=== PATIENT | male | born 1960 | race Caucasian/White ===

== ENCOUNTER 2025-07-11 07:38 | Outpatient (AMB) | payer BC, SELFPAY ==
--- OUTSIDE RECORDS SUMMARY | 2025-07-11 07:45 | XMS_ITS | Clinical Summary ---
Author Organization [facility] Address [address] [place] [phone] Phone Care Team Providers Care Energy Derivatives Trader Name Role Phone Jermain Santos DO Primary Care Provider [phone] Allergies No known active allergies Medications hydroCHLOROthiazi de (HYDRODIURIL) 25 MG tablet Take 25 mg by mouth daily. 10/19/2020 Active rosuvastatin (CRESTOR) 10 MG tablet Take 10 mg by mouth daily. 10/11/2020 Active valsartan (DIOVAN) 80 MG tablet Take 80 mg by mouth daily. 10/19/2020 Active omeprazole (PRILOSEC) 20 mg TbEC Take 20 mg by mouth daily before breakfast. Active cholecalciferol (VITAMIN D3) 2,000 unit tablet Take 1,000 Units by mouth daily. Active therapeutic multivitamin tablet Take 1 tablet by mouth daily. Active omega-3 fatty acids-fish oil 340-1,000 mg Cap Take by mouth daily. Active Immunizations Immunization Administration Dates Next Due COVID-19 (Pre-08/03) Pfizer Vaccine, mRNA, PF ,01/09/2021 Social History Tobacco Use Types Packs/Day Years Used Date Smoking Tobacco: Never Smokeless Tobacco: Never Education Answer Date Recorded Are you interested in more education? Not on clementine e 02/06/2023 Are you concerned about learning? Not on file 02/06/2023 No 02/06/2023 No 02/06/2023 Digital Access Answer Date Recorded No 03/07/2023 No 03/07/2023 No 03/07/2023 Reliable internet access at home? Not on file 03/07/2023 Device with a working camera? Not on file Sex and Gender Information Value Date Recorded Sex Assigned at Male 10/17/2020 2:41 PM EST Legal Sex Male 2:26 PM EST Gender Identity Male 10/17/2020 2:41 PM EST Sexual Orientation Straight 10/17/2020 2: 41 PM EST Plan of Treatment Health Maintenance Due Date Last Done Comments Adult Td,Tdap Booster 1960 CREATININE LEVEL 1960 LIPID PANEL 1960 POTASSIUM LEVEL 1960 DEPRESSION SCREENING 1972 HEPATITIS C SCREENING 02/07/1978 HIV ONE-TIME SCREENING (18-6 5 YEARS) 02/07/1978 COLOGUARD 02/07/2005 COLONOSCOPY 02/07/2005 COLORECTAL CANCER SCREENING 02/07/2005 FIT TEST 02/07/2005 FOBT 02/07/2005 SIGMOIDOSCOPY 02/07/2005 VIRTUAL COLONOSCOPY 02/07/2005 PNEUMOCOCCAL VACCINES (50+ years) (1 of 1 - PCV) 02/07/2010 ZOSTER VACCINES (1 of 2) 02/07/2010 INFLUENZA VACCINE (#1) 2025 07/11/2017 COVID-19 VACCINE (3 - 2024-2 6 season) 2025 01/30/2021, 01/09/2021 RSV VACCINE (1 - 1-dose 75+ series) 02/07/2035 SMOKING STATUS SCREENING (On ce After 26 Yrs) Completed 10/25/2020 HEPATITIS A VACCINES Aged Out No long er eligible based on patient's age to complete this topic HIB VACCINES Aged Out No longer eligi ble based on patient's age to complete this topic MENINGOCOCCAL VACCINES (ACWY) Aged Out No longer eligible based on patient's age to complete this topic MENINGOCOCCAL VACCINES (B) Aged Out N o longer eligible based on patient's age to complete this topic Medical Devices Not on file Insurance [facility] PPO EPO PPO EPO Care Teams Energy Derivatives Trader Relationship Specialty Start Date End Date Jermain Santos DO [address] [place] [id number] PCP - General Internal Medicine 10/17/20 Additional Source Comments The information contained in this document represents components of the legal health record. It is not the complete legal health record.[facility]
--- OUTSIDE RECORDS SUMMARY | 2025-07-11 07:45 | XMS_ITS ---
[facility] Name [facility] Unknown History of Medication Use Medication Directions Dispensed Refills Start Date End Date Stat us No known medications No known medications active Problems Problem Status Onset Date Problem Type Date of Resolution Source Need for vaccination active EncounterDiagnosisAct [facility] MCCT Immunizations Vaccine Date Source Lot Number Status Fluzone Trivalent High Dose (65+ Years) 06/16/2025 [facility] CCT [id number] completed Fluzone Trivalent Prefilled Syringe (18+ months) 07/12[facility]2020 [id number] Boostrix (Tdap) Prefilled Syringe 03/09/2020 [facility] completed Fluarix Quadrivalent Prefilled Syringe [id number] Fluarix Quadrivalent Prefilled Syringe 07/12/2016 [facility] [id number] completed Afluria TIV Multi-dose Vial (9+ years) 08/04/[address] [facility] [id number] completed Encounters Encounter Type Encounter Reason Primary Diagnosis Location Date Ambulatory Flu Vaccine Encounter for immunization [facility] 06/16/2025 Care Team Organization Name Specialty Phone Email Start Date End Da te [facility] 06/17/2025
--- OUTSIDE RECORDS SUMMARY | 2025-07-11 07:45 | XMS_ITS | Clinical Summary ---
Author Organization [facility] Address [address] [place] [phone] Phone Care Team Providers Care Certified Teacher Assistant Name Role Phone DanielleJermain beckwith Primary Care Provider [phone] Allergies No known active allergies Medications cholecalciferol (VITAMIN D-3 SUPER STRENGTH) 50 MCG (2000 UT) tablet Take 1,000 Units by mouth in the morning. Active valsartan (DIOVAN) 80 MG tablet Take 80 mg by mouth in the morning. 1 Active rosuvastatin (CRESTOR) 10 MG tablet Take 10 mg by mouth in the morning. 0 Active Canagliflozin (Invokana) 100 MG tablet Take 100 mg by mouth 1 (one) time each day 2 Active Coenzyme Q10 (CoQ-10) 150 MG capsule Take by mouth 1 (one) time each day 4 Active Ginkgo Biloba 40 MG tablet Take 40 mg by mouth 1 (one) time each day 4 Active glimepiride (AMARYL) 1 MG tablet Take 1 mg by mouth 1 (one) time each day before breakfast 2 Active Sodium Hyaluronate, oral, (Hyaluronic Acid) 100 MG capsule Take 100 mg by mouth 1 (one) time each day 3 Active dicyclomine (BENTYL) 10 MG capsule Take 10 mg by mouth if needed 2 Active hydroCHLOROthia zide 25 MG tablet 25 mg 0 Active Multiple Vitamin (Multi-Vitamin Daily) tablet Active omega-3 (FISH OIL) 1200 MG capsule 0 Active omeprazole (PriLOSEC) [address] capsule 0 Active Active Problems Problem Noted Date Diagnosed Date Chronic kidney disease, stage 2 (mild) 4 Diabetes mellitus, not otherwise specified 09/04 Polycythemia 09/04/2024 Hematuria, not otherwise specified 09/04/2024 Hypertension 09/11/2023 Obese class I 09/10/2023 09/10/2023 Immunizations Immunization Administration Dates Next Due Influenza, Quadrivalent, Preservative Free 07/12,07/11/2017,07/12/2016 Influenza, Unspecified 08/04/2015 Pfizer SARS-COV-2 01/30/2021,01/09/2021 Tdap 03/09/2020 Social History Tobacco Use Types Packs/Day Years Used Date Smoking Tobacco: Never Assessed Sex and Gender Information Value Date Recorded Sex Assigned at Not on file Legal Sex Male 11:12 AM EST Gender Identity Not on file Sexual Orientation Not on file Last Filed Vital Signs Vital Sign Reading Time Taken Comments Blood Pressure 118/70 09/06/2024 8:17 AM EST Pulse 82 09/06/2024 8:17 AM EST Temperature - - Respiratory Rate - - Oxygen Saturation 96% 09/06/2024 8:17 AM EST Inhaled Oxygen Concentration - - Weight 95.3 kg (210 lb) 09/06/2024 8:17 AM EST Height - - Body Mass Index - - Plan of Treatment Upcoming Encounters Date Type Department Care Team (Late st Contact Info) Description 09/13/2025 9:00 AM EST Office Visit [facility] [address] [phone] Abhishek Jewell MD [address] [phone] Health Maintenance Due Date Last Done Comments Pneumococcal Vaccine: 50+ Years (1 of 2 - PCV) 02/07/1979 Colorectal Cancer Screening: Annual FOBT 02/07/2009 Colorectal Cancer Screening: Colonoscopy 02/07/2009 Colorectal Cancer Screening: Sigmoidoscopy 02/07/2009 Diabetes: Hemoglobin A1C 09/04/2024 Diabetes: Ophthalmology Exam 09/04/2024 Diabetes: Pedal Pulse Checked 09/04/2024 Diabetes: Sensory Foot Exam 09/04/2024 Diabetes: Visual Foot Exam 09/04/2024 Influenza Vaccine (#1) 2025 , 07/11/2017, 07/12/2016, Additional history exists Hepatitis B Vaccine Aged Out No longe r eligible based on patient's age to complete this topic Insurance Care Teams Certified Teacher Assistant Relationship Specialty Start Date End Date Jermain Santos DO [address] [place] [phone] PCP - General Internal Medicine 09/09/23
--- NOTE | 2025-07-11 07:48 | MHC.OFFVIS ---
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 Patient was referred by his PCP 06/01/25 at their visit he states that for the past 10 years he has had shoulder pain. He has had an MRI at [facility] about a month ago. He states that he has suffered multiple injuries to his right shoulder playing softball many years ago. He reports mild weakness lifting his right hand above shoulder height. He does not take any pain medicine on a daily basis for his discomfort. Allergies No Known Allergies Allergy (Verified 07/11/25 07:51) Medication List - Last Reconciled 07/11/25 by Kade Bryant MD blood-glucose meter (REACH HealthStyle [place] Lite kit) As directed canagliflozin (Invokana) 100 mg PO DAILY cholecalciferol (vitamin D3) 50 mcg PO DAILY coenzyme Q10 (Co Q-10) 100 mg PO DAILY dicyclomine 10 mg PO BID fluticasone propionate 50 mcg/actuation 1 inh inhalation BID glimepiride 1 mg PO DAILY hydrochlorothiazide 25 mg PO DAILY lancets (FreeStyle Lancets) As directed multivitamin 1 tab PO QAM omega-3 fatty acids 1,000 mg PO DAILY omeprazole 20 mg PO DAILY rosuvastatin 10 mg PO DAILY valsartan 80 mg PO DAILY PFSH Social History (Updated 07/11/25 @ 08:01 by Hussain Quigley) Alcohol intake: current Alcohol intake frequency: holidays/special occasions only Patient Tobacco Use Status: Never used Tobacco Current occupation: right hand dominant Physical Exam Const Other: Well-nourished well-developed very friendly male awake alert and oriented x3 in no acute distress Extrem Other: Right shoulder examination shows full active range of motion when compared to his left shoulder, 3/5 strength with supraspinatus testing, positive impingement signs, no instability Results Reviewed Results Reviewed: MRI of the patient's right shoulder shows a large rotator cuff tear involving the supraspinatus and infraspinatus tendons as well as a high-riding humeral head consistent with a chronic rotator cuff tear Assessment & Plan Assessment & Plan (1) Right shoulder pain: Code(s): M25.511 - Pain in right shoulder Category: Medical Plan Mr. Oswald presents with intermittent right shoulder pain and weakness due to a chronic rotator cuff tear. I had a lengthy discussion with the patient regarding the treatment options. At this point the patient's discomfort is tolerable to him. He will continue with his range of motion exercises to prevent stiffness. The do's and don'ts of lifting were discussed at length with the patient. We will hold off on a cortisone injection. The patient will follow up with me on an as-needed basis should his symptoms worsen in any way. Feel free to call me at any time should questions regarding his orthopedic management arise. Thank you very much for asking me to see this very friendly gentleman. I spent 21 minutes in reviewing the patient's records and imaging studies, seeing the patient and documenting in the medical record. Orders: Orders XR shoulder RT min 2V Today M25.511 - Pain in right shoulder Coding Level of Care Code New Pt Level 3 (15229) Complex EM visit Add On G2211 Diagnoses Right shoulder pain M25.511
== END 2025-07-11 08:19 | disposition home or self-care (01) ==
LOC: HO.HOS 07:39
PROVIDERS: Referring Provider Internal Medicine; Visit Provider Orthopaedic Surgery
DX: M25.511 Pain in right shoulder (principal)
CPT/HCPCS: 99203

== ENCOUNTER → 2025-07-11 07:42 | Outpatient (BNV) | payer BC, SELFPAY | PROVIDERS: Visit Provider Radiology Diagnostic Radiology | DX: M19.011 Primary osteoarthritis, right shoulder (principal) | CPT/HCPCS: 73030 ==

== ENCOUNTER 2025-07-11 08:35 | Outpatient (REF) | payer BC, SELFPAY ==
--- NOTE | ~2025-07-11 | XR_ITS ---
EXAMINATION: XR SHOULDER 2 OR MORE VIEWS RIGHT HISTORY: M25.511 - Pain in right shoulder COMPARISON: There are no prior studies available for comparison. FINDINGS: Two views of the right shoulder are submitted. Osseous mineralization is normal. There is no fracture or dislocation. There is severe osteoarthritis of the AC joint with joint space narrowing and osteophyte formation. The glenohumeral joint is maintained. The humeral head is high riding, suggestive of rotator cuff disease. The soft tissues are unremarkable. XR/XR shoulder RT min 2V IMPRESSION: Severe osteoarthritis of the AC joint. High riding humeral head, suggestive of rotator cuff disease. Electronically signed by: Trev Barrow MD 07/11/2025 07:51 AM EDT
--- OUTSIDE RECORDS SUMMARY | 2025-07-12 09:05 | XMS_ITS | Clinical Summary ---
Author Organization [facility] Address [address] [place] [phone] Phone Care Team Providers Care Fbi Profiler Name Role Phone Jermain Santos DO Primary Care Provider [phone] Allergies No known active allergies Medications hydroCHLOROthiazi [...] topic Medical Devices Not on file Insurance [facility] PPO EPO PPO EPO Care Teams Fbi Profiler Relationship Specialty Start Date End Date Jermain Santos DO [address] [place] [phone] PCP - General Internal Medicine 10/17/20 Additional Source Comments The information contained in this document represents components of the legal health record. It is not the complete legal health record.[facility]
--- OUTSIDE RECORDS SUMMARY | 2025-07-12 09:05 | XMS_ITS | Clinical Summary ---
Author Organization [facility] Address [address] [place] [phone] Phone Care Team Providers Care Hot Header Operator Name Role Phone DanielleJermain beckwith Primary Care Provider [phone] Allergies No known active allergies Medications cholecalciferol [...] Visit [facility] [address] [phone] Abhishek Jewell MD [address] [phone] Health Maintenance Due Date Last Done Comments [...] to complete this topic Insurance Care Teams Hot Header Operator Relationship Specialty Start Date End Date Jermain Santos DO [address] [place] [id number] PCP - General Internal Medicine 09/09/23
== END 2025-07-11 08:36 | disposition home or self-care (01) ==
LOC: HO.HOSX 08:35
PROVIDERS: Visit Provider Orthopaedic Surgery
DX: M25.511 Pain in right shoulder (principal)
CPT/HCPCS: 73030